=== PATIENT | female | born 1940 | race Caucasian/White ===

== ENCOUNTER 2024-04-30 10:50 | Day surgery (SDC) | payer MEDICARE, BC ==
[2024-04-29 09:26] VITALS: BMI 20.5
[2024-04-30] MEDS ORDERED: Lidocaine 1% PF 5 ML VIAL ONE (11:53)
[2024-04-30] MEDS ORDERED: Rocuronium Bromide 10 MG/ML (10ML VIAL) ONE (11:53)
[2024-04-30] MEDS ORDERED: PROPOFOL 20 ML ONE (11:53)
[2024-04-30] MEDS ORDERED: fentaNYL 50 mcg/mL 1 mL Vial ONE ×4 (11:54→13:55)
[2024-04-30] MEDS ORDERED: Bupivacaine/Epinephrine 0.25% 30 ML VIAL ONE (12:07)
[2024-04-30] MEDS ORDERED: CEFAZOLIN 2 GM VIAL ONE ×2 (12:07→12:45)
[2024-04-30] MEDS ORDERED: Indocyanine Green 25 MG/10 ML VIAL ONE (12:07)
[2024-04-30] MEDS ORDERED: ePHEDrine Sulfate 50 MG/10 ML VIAL ONE (12:43)
[2024-04-30] MEDS ORDERED: Dexamethasone 4 mg/ml Vial ONE (12:47)
[2024-04-30] MEDS ORDERED: Ondansetron PF 4 MG/2 ML Vial ONE (13:04)
[2024-04-30] MEDS ORDERED: SUGAMMADEX SODIUM 200 MG/2 ML VIAL ONE (13:05)
[2024-04-30] MEDS ORDERED: HYDROcodone/Acetaminophen 5/325 mg Tablet ONE (14:15)
== END 2024-04-30 15:08 | disposition home or self-care (01) ==
LOC: CSHSDC 10:50
PROVIDERS: ATTEND Surgery
PROC: 0FT44ZZ Resection of Gallbladder, Percutaneous Endoscopic Approach (ICD-10-PCS; principal; 2024-04-30)
DX: K81.1 Chronic cholecystitis (principal); I10 Essential (primary) hypertension; I25.10 Atherosclerotic heart disease of native coronary artery without angina pectoris; I44.7 Left bundle-branch block, unspecified; E03.9 Hypothyroidism, unspecified; K21.9 Gastro-esophageal reflux disease without esophagitis; Z90.710 Acquired absence of both cervix and uterus; Z90.89 Acquired absence of other organs; Z79.890 Hormone replacement therapy; Z79.51 Long term (current) use of inhaled steroids; Z79.82 Long term (current) use of aspirin; Z79.899 Other long term (current) drug therapy
CPT/HCPCS: 47562; C1889; J1100; J2405; J2704; J3010; S2900; 88304